=== PATIENT | male | born 1990 | race Caucasian/White ===

== ENCOUNTER 2018-10-09 09:44 | Emergency (ER) | payer OTHER ==
[~2018-10-09] VITALS: Ht 185.4 cm; Wt 61.2 kg
[~2018-10-09 09:44] MED LIST: ACE AEROSOL CL1 EACH MISC; DAY TIME COLD-237 ML PO; IBUPROFEN800 MG PO; NORCO 5-325 TA1 EACH PO; PROVENTIL HFA6.7 GM INH; ZOFRAN4 MG PO
== END 2018-10-09 10:00 | disposition home or self-care (01) ==
LOC: ED 09:44
DX: R68.84 Jaw pain (principal)

== ENCOUNTER 2021-08-20 15:44 | Emergency (ER) | payer SELFPAY ==
[~2021-08-20] VITALS: Ht 185.4 cm; Wt 61.2 kg
== END 2021-08-20 16:20 | disposition left against medical advice (07) ==
LOC: ED 15:44
DX: R55 Syncope and collapse (principal); F17.200 Nicotine dependence, unspecified, uncomplicated
CPT/HCPCS: 36415; 80053; 84484; 85025; 99285-25; U0003

== ENCOUNTER 2022-01-03 11:44 | Emergency (ER) | payer SELFPAY ==
[~2022-01-03] VITALS: Ht 185.4 cm; Wt 66.7 kg
== END 2022-01-03 15:52 ==
LOC: ED 11:44
DX: S61.412A Laceration without foreign body of left hand, initial encounter (principal); Z23 Encounter for immunization; W26.0XXA Contact with knife, initial encounter; F17.200 Nicotine dependence, unspecified, uncomplicated
CPT/HCPCS: 12002; 90471; 90715; 99282-25

== ENCOUNTER 2022-01-24 12:44 | Emergency (ER) | payer OTHER ==
[~2022-01-24] VITALS: Ht 182.9 cm; Wt 63.5 kg
--- OUTSIDE RECORDS SUMMARY | 2022-01-24 12:50 | XMS ---
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 Raffaele has no Care Guidelines for this patient. [facility] MO.) [facility] NOTE: Visits indicate total known visits. ED/C VISIT TRACKING (12 MO.) [facility]22 12:44 [facility] COMPLAINT: - SEIZURE 01/03/2022 11:45 [facility] [place] TYPE: Emergency COMPLAINT: - LACERATION DIAGNOSES: - Laceration without foreign body of left hand, initial encounter - Nicotine dependence, unspecified, uncomplicated - Encounter for immunization - Contact with knife, initial encounter 08/20/2021 15:44 [facility] [place] TYPE: Emergency COMPLAINT: - SEIZURE DIAGNOSES: - Syncope and collapse - Nicotine dependence, unspecified, uncomplicated INPATIENT VISIT TRACKING (12 MO.) No inpatient visits to display in this time frame [email or web address]
== END 2022-01-24 15:36 | disposition home or self-care (01) ==
LOC: ED 12:44
DX: R56.9 Unspecified convulsions (principal); J45.909 Unspecified asthma, uncomplicated; F17.200 Nicotine dependence, unspecified, uncomplicated
CPT/HCPCS: 36415; 80053; 85025; 99284; J7030

== ENCOUNTER 2022-05-05 15:25 | Emergency (ER) | payer OTHER ==
[~2022-05-05] VITALS: Ht 182.9 cm; Wt 68.0 kg
== END 2022-05-05 17:25 | disposition left against medical advice (07) ==
LOC: ED 15:25
DX: R56.9 Unspecified convulsions (principal); F17.200 Nicotine dependence, unspecified, uncomplicated
CPT/HCPCS: 70450; 70486; 72125

== ENCOUNTER 2023-05-25 13:48 | Emergency (ER) | payer SELFPAY ==
[~2023-05-25] VITALS: Ht 182.9 cm; Wt 63.5 kg
[~2023-05-25 13:48] MED LIST changes: +KEPPRA500 MG PO
[2023-05-25 16:15] LABS: AMPHETAMINES, URINE POSITIVE (NEGATIVE); BARBITURATES, URINE NEGATIVE (NEGATIVE); BENZODIAZEPINE, URINE NEGATIVE (NEGATIVE); BUPRENORPHINE, URINE NEGATIVE (NEGATIVE); CANNABINOID, URINE POSITIVE (NEGATIVE); COCAINE, URINE NEGATIVE (NEGATIVE); ECSTASY, URINE POSITIVE (NEGATIVE); FENTANYL, URINE NEGATIVE (NEGATIVE); METHADONE, URINE NEGATIVE (NEGATIVE); OPIATES, URINE NEGATIVE (NEGATIVE); PHENCYCLIDINE, URINE NEGATIVE (NEGATIVE)
[2023-05-25] MEDS ORDERED: KEPPRA500 MG PO (16:33)
[2023-05-25 16:34] LABS: OXYCODONE, URINE NEGATIVE (NEGATIVE)
[2023-05-25 17:10] VITALS: BP 154/101
== END 2023-05-25 17:10 | disposition home or self-care (01) ==
LOC: ED 13:48
PROVIDERS: Emergency Medicine
DX: R56.9 Unspecified convulsions (principal); F17.200 Nicotine dependence, unspecified, uncomplicated
CPT/HCPCS: 80307; J1953

== ENCOUNTER 2024-03-07 11:12 | Emergency (ER) | payer OTHER ==
[~2024-03-07] VITALS: Ht 182.9 cm; Wt 67.0 kg
[~2024-03-07 11:12] MED LIST changes: +METHYLPREDNISOLO4 M1 PO; +VENTOLIN HFA18 GM INH
[2024-03-07] MEDS ORDERED: TETRACAINE HCL 0.5% 4 ML BTL OD SCH (11:30)
[2024-03-07] MEDS ORDERED: diphenhydrAMINE HCL 50 MG/ML VIAL IV ONE (11:45)
[2024-03-07] MEDS ORDERED: CEFAZOLIN SODIUM 1 GM/10 ML SYR IV ONE (11:45)
[2024-03-07] MEDS ORDERED: CEPHALEXIN500 M1 PO (12:36)
[2024-03-07 12:51] VITALS: BP 111/68
== END 2024-03-07 12:50 | disposition home or self-care (01) ==
LOC: ED 11:12
DX: L03.213 Periorbital cellulitis (principal); J45.909 Unspecified asthma, uncomplicated; F17.200 Nicotine dependence, unspecified, uncomplicated
CPT/HCPCS: 96374; 96375; 99282-25; J0690; J1200

== ENCOUNTER 2024-05-22 14:58 | Emergency (ER) | payer OTHER ==
[~2024-05-22] VITALS: Ht 182.9 cm; Wt 70.0 kg
[~2024-05-22 14:58] MED LIST changes: +CEPHALEXIN500 M1 PO
[2024-05-22] MEDS ORDERED: LIDOCAINE/RACEPINEP/TETRACAINE 3 ML SYR TOP ONE (16:00)
[2024-05-22] MEDS ORDERED: levETIRAcetam 500 MG/5 ML VIAL IV ONE (16:00)
[2024-05-22] MEDS ORDERED: DIPHTH,PERTUSS(ACELL),TET VAC 0.5 ML SYRINGE IM ONE (16:00)
[2024-05-22 16:03] LABS: BASOPHILS 0.2 % (0-2); HEMATOCRIT 41.8 % (35.0-50.0); HEMOGLOBIN 14.2 g/dL (12.0-18.0); LYMPHOCYTES 11.3 % (24-44); MCH 32.1 (27-36); MCHC 33.9 g/dl (30-36); MCV 94.6 fl (81-99); NEUTROPHILS 83.5 % (39-80); PLATELET COUNT 307 K/uL (140-440); RBC 4.42 M/ul (4.3-5.7)
[2024-05-22 16:12] LABS: ALBUMIN 3.7 g/dL (3.4-5.0); ALBUMIN/GLOBULIN RATIO 1.03 (1.1-2.4); ALCOHOL, MEDICAL <3 ng/dL (<3); ALKALINE PHOSPHATASE 99 U/L (46-116); ALT (SGPT) 19 U/L (14-59); ANION GAP 10.7 (7-21); AST (SGOT) 13 U/L (15-37); BILIRUBIN, TOTAL 0.5 ng/dL (0.2-1.0); CALCIUM 8.7 mg/dL (8.5-10.1); CARBON DIOXIDE 31 mmol/L (21-32); CHLORIDE 103 mmol/L (98-107); CREATININE, SERUM 1.01 mg/dL (0.70-1.30); GLOMERULAR FILTRATION RATE,EST 99 mL/min (>60); POTASSIUM 3.7 mmol/L (3.5-5.1); PROTEIN, TOTAL 7.3 g/dL (6.4-8.2); UREA NITROGEN 10 mg/dL (7-18)
[2024-05-22] MEDS ORDERED: KEPPRA100 MG/1 M PO (16:55)
[2024-05-22] MEDS ORDERED: VENTOLIN HFA18 GM (16:55)
[2024-05-22 17:29] LABS: BILIRUBIN, URINE NEGATIVE (negative); BLOOD/HGB, URINE NEGATIVE (Negative); KETONE, URINE NEGATIVE (Negative); LEUK ESTERASE, URINE NEGATIVE (negative); NITRITE, URINE NEGATIVE (negative)
[2024-05-22 17:47] LABS: AMPHETAMINES, URINE NEGATIVE (NEGATIVE); BARBITURATES, URINE NEGATIVE (NEGATIVE); BENZODIAZEPINE, URINE NEGATIVE (NEGATIVE); BUPRENORPHINE, URINE NEGATIVE (NEGATIVE); CANNABINOID, URINE POSITIVE (NEGATIVE); COCAINE, URINE NEGATIVE (NEGATIVE); ECSTASY, URINE NEGATIVE (NEGATIVE); FENTANYL, URINE NEGATIVE (NEGATIVE); METHADONE, URINE NEGATIVE (NEGATIVE); OPIATES, URINE NEGATIVE (NEGATIVE); OXYCODONE, URINE NEGATIVE (NEGATIVE); PHENCYCLIDINE, URINE NEGATIVE (NEGATIVE)
[2024-05-22] MEDS ORDERED: KEPPRA1000 MG PO (18:00)
[2024-05-22 18:10] VITALS: BP 134/78
== END 2024-05-22 18:11 | disposition home or self-care (01) ==
LOC: ED 14:58
PROVIDERS: Emergency Medicine
DX: R56.9 Unspecified convulsions (principal); S01.01XA Laceration without foreign body of scalp, initial encounter; Z23 Encounter for immunization; X58.XXXA Exposure to other specified factors, initial encounter
CPT/HCPCS: 12002; 36415; 70450; 72125; 80053; 80307; 81003; 85025; 90471; 90715; 99284-25; G0480; J1953

== ENCOUNTER 2024-09-22 16:15 | Emergency (ER) | payer OTHER ==
[~2024-09-22] VITALS: Ht 182.9 cm; Wt 68.4 kg
[~2024-09-22 16:15] MED LIST changes: +KEPPRA100 MG/1 M PO; +KEPPRA1000 MG PO; +VENTOLIN HFA18 GM
[2024-09-22] MEDS ORDERED: VENLAFAXINE H37.5 MG PO (17:10)
[2024-09-22] MEDS ORDERED: VITAMIN D21250 MCG PO (17:10)
[2024-09-22] MEDS ORDERED: QUETIAPINE FUMA25 MG PO (17:10)
[2024-09-22 17:42] VITALS: BP 143/105
--- NOTE | 2024-09-22 19:54 | EKG ---
[facility] [address] [place] [address] Signed Sinus bradycardia with marked sinus arrhythmia Otherwise normal ECG When compared with ECG of 10-MAR-2022 12:56, Vent. rate has decreased BY 38 BPM QT has shortened Confirmed by Rashard Brooks MD ([id number]) on 09/22/2024 7:54:15 PM Electronically Signed By: RASHARD BROOKS MD 09/22/241953 PATIENT NAME: ZHANG ADORNO Electrocardiogram DATE OF : 86 PHYSICIAN: RASHARD BROOKS MD REPORT #: [id number] REPORT IS CONFIDENTIAL AND NOT TO BE RELEASED WITHOUT AUTHORIZATION
== END 2024-09-22 17:42 | disposition home or self-care (01) ==
LOC: ED 16:15
DX: R56.9 Unspecified convulsions (principal); J45.998 Other asthma; F17.200 Nicotine dependence, unspecified, uncomplicated; Z79.899 Other long term (current) drug therapy
CPT/HCPCS: 93005; 93010; 99284

== ENCOUNTER 2024-09-26 22:50 | Emergency (ER) | payer OTHER ==
[~2024-09-26] VITALS: Ht 185.4 cm; Wt 65.0 kg
[~2024-09-26 22:50] MED LIST changes: +QUETIAPINE FUMA25 MG PO; +VENLAFAXINE H37.5 MG PO; +VITAMIN D21250 MCG PO
--- OUTSIDE RECORDS SUMMARY | 2024-09-26 22:53 | XMS ---
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 Wendy VISIT COUNT (12 MO[address] 5 [facility] TOTAL 5 NOTE: Visits indicate total known visits. ED/C VISIT TRACKING (12 MO.) 09/26/2024 22:50 [facility] [place] TYPE: Emergency COMPLAINT: - LEG SWELLING 09/22/2024 16:16 [facility] [place] TYPE: Emergency COMPLAINT: - SEZIURES DIAGNOSES: - Nicotine dependence, unspecified, uncomplicated - Other asthma - Other long-term (current) drug therapy - Unspecified convulsions 06/01/2024 12:58 [facility] [place] TYPE: Emergency COMPLAINT: - STAPLE REMOVAL 05/22/2024 14:58 [facility] [place] TYPE: Emergency COMPLAINT: - SEIZURE DIAGNOSES: - Encounter for immunization - Exposure to other specified factors, initial encounter - Laceration without foreign body of scalp, initial encounter - Unspecified convulsions 03/07/2024 11:12 [facility] [place] TYPE: Emergency COMPLAINT: - RT EYE PROBLEM DIAGNOSES: - Nicotine dependence, unspecified, uncomplicated - Periorbital cellulitis - Unspecified asthma, uncomplicated INPATIENT VISIT TRACKING (12 MO.) No inpatient visits to display in this time frame [email or web address]
[2024-09-27] MEDS ORDERED: DOXYCYCLINE HYCLATE 100 MG HOME.PACK PO ONE (00:15)
[2024-09-27 00:26] VITALS: BP 139/74
== END 2024-09-27 00:27 | disposition home or self-care (01) ==
LOC: ED 22:50
DX: L03.116 Cellulitis of left lower limb (principal); L03.115 Cellulitis of right lower limb; J45.909 Unspecified asthma, uncomplicated; F17.200 Nicotine dependence, unspecified, uncomplicated; Z79.899 Other long term (current) drug therapy
CPT/HCPCS: 36415; 85379; 93971; 99283-25; A9270